=== PATIENT | male | born 1995 | race Caucasian/White ===

== ENCOUNTER 2019-04-06 11:44 | Emergency (ER) | payer MEDICAID ==
[~2019-04-06] VITALS: Ht 160 cm; Wt 77.1 kg
[2019-04-06 11:59] VITALS: Ht 160 cm; Wt 77.1 kg
[2019-04-06 14:13] VITALS: BP 139/80
== END 2019-04-06 14:15 | disposition home or self-care (01) ==
LOC: ED 11:44
DX: L05.91 Pilonidal cyst without abscess (principal)